=== PATIENT | female | born 1990 | race American Indian/Alaskan Native ===

== ENCOUNTER 2018-05-13 18:33 | Emergency (ER) | payer SELFPAY ==
[2018-05-13] MEDS ORDERED: NACL 0.9% 1000 ML 1,000 ML IV ONE (18:44)
[2018-05-13 19:22] LABS: Basophils # (Auto) 0.1 K/mm3 (0.0-0.1); Basophils % (Auto) 0.5 % (0.0-1.8); Eosinophils # (Auto) 0.2 K/mm3 (0.0-0.4); Eosinophils % (Auto) 1.6 % (0.0-4.3); Hemoglobin 11.2 gm/dl (10.1-14.3); Lymphocytes # (Auto) 2.8 K/mm3 (1.2-5.4); Lymphocytes % (Auto) 27.4 % (13.4-35.0); Mean Corpuscular HGB Conc 33 % (30-34); Mean Corpuscular Volume 91 fl (79-97); Monocytes # (Auto) 0.5 K/mm3 (0.0-0.8); Monocytes % (Auto) 5.3 % (0.0-7.3); Platelet Count 178 K/mm3 (140-440); Red Blood Count 3.76 M/mm3 (3.65-5.03); Red Cell Distribution Width 13.2 % (13.2-15.2)
[2018-05-13 19:36] LABS: Alanine Aminotransferase 9 units/L (7-56); Albumin 4.5 g/dL (3.9-5); BUN/Creatinine Ratio 14; Blood Urea Nitrogen 10 mg/dL (7-17); Calcium 9.3 mg/dL (8.4-10.2); Hemolysis Index 2
[2018-05-13 19:53] LABS: Bacteria,Urine 2+ /HPF (Negative); Bilirubin,Urine NEG (Negative); Blood,Urine MOD (Negative); Color,Urine Yellow (Yellow); Mucus,Urine 3+ /HPF; Urobilinogen,Urine < 2.0 mg/dL (<2.0)
[2018-05-13 20:10] LABS: HCG Qualitative,Urine Negative (Negative); WBC,Urine > 182.0 /HPF (0.0-6.0)
[2018-05-13] MEDS ORDERED: IBUPROFEN PO ONE (21:42)
--- NOTE | 2018-05-13 21:42 | Emergency Department Report ---
ED Abdominal Pain HPI - General Chief Complaint: Abdominal Pain Stated Complaint: LT SIDE/STOMACH PAIN Time Seen by Provider: 05/13/18 21:33 Source: patient Mode of arrival: Ambulatory Limitations: No Limitations - History of Present Illness Initial Comments: 27-year-old -[place] female 6 para 6 comes in for throbbing intermittent abdominal pain to the left lower quadrant. Patient reports that his radiate to the bottom of her stomach. She admits to nausea denies any vomiting diarrhea or constipation. Patient reports her last menstrual para with 04/30/2018. She denies any fever chills. MD Complaint: abdominal pain -: days(s) (1) Location: LLQ Radiation: suprapubic Severity scale (0 -10): 2 Quality: aching Consistency: intermittent Improves With: nothing Worsens With: nothing - Related Data Previous Rx's Medication Instructions Recorded Last Taken Type Ferrous Sulfate [Feosol 325 MG tab] 325 mg PO TID #90 tablet 05/08/16 Unknown Rx Ibuprofen [Motrin 800 MG tab] 800 mg PO Q8HR PRN #30 tablet 05/08/16 Unknown Rx Lidocain2.5%/Prilocai2.5% [Emla] 5 gm TP ONCE PRN #1 tube 05/08/16 Unknown Rx Ibuprofen [Motrin 600 MG tab] 600 mg PO Q8H PRN #15 tablet 05/13/18 Unknown Rx Nitrofurantoin Blanco/M-Cryst 100 mg PO Q12HR #20 capsule 05/13/18 Unknown Rx [Macrobid CAP] Allergies Allergy/AdvReac Type Severity Reaction Status Date / Time No Known Allergies Allergy Unverified 04/29/16 15:57 ED Review of Systems ROS: Stated complaint: LT SIDE/STOMACH PAIN Other details as noted in HPI Comment: All other systems reviewed and negative Gastrointestinal: abdominal pain ED Past Medical Hx - Past Medical History Previous Medical History?: No Hx Hypertension: No Hx Congestive Heart Failure: No Hx Diabetes: No Hx Deep Vein Thrombosis: No Hx Renal Disease: No Hx Sickle Cell Disease: No Hx Seizures: No Hx Asthma: No Hx COPD: No Hx HIV: No - Surgical History Past Surgical History?: No - Social History Smoking Status: Never Smoker Substance Use Type: None - Medications Home Medications: Home Medications Medication Instructions Recorded Confirmed Last Taken Type Ferrous Sulfate [Feosol 325 MG tab] 325 mg PO TID #90 tablet 05/08/16 Unknown Rx Ibuprofen [Motrin 800 MG tab] 800 mg PO Q8HR PRN #30 tablet 05/08/16 Unknown Rx Lidocain2.5%/Prilocai2.5% [Emla] 5 gm TP ONCE PRN #1 tube 05/08/16 Unknown Rx Ibuprofen [Motrin 600 MG tab] 600 mg PO Q8H PRN #15 tablet 05/13/18 Unknown Rx Nitrofurantoin Blanco/M-Cryst 100 mg PO Q12HR #20 capsule 05/13/18 Unknown Rx [Macrobid CAP] ED Physical Exam - General Limitations: No Limitations General appearance: alert, in no apparent distress - Head Head exam: Present: atraumatic, normocephalic - ENT ENT exam: Present: mucous membranes moist - Respiratory Respiratory exam: Present: normal lung sounds bilaterally. Absent: respiratory distress - Cardiovascular Cardiovascular Exam: Present: regular rate, normal rhythm. Absent: systolic m urmur, diastolic murmur, rubs, gallop - GI/Abdominal GI/Abdominal exam: Present: soft, normal bowel sounds ED Course Vital Signs 05/13/18 18:40 Temperature 98.1 F Pulse Rate 96 H Respiratory 16 Rate Blood Pressure 106/62 O2 Sat by Pulse 100 Oximetry ED Medical Decision Making - Lab Data Result diagrams: 05/13/18 18:58 05/13/18 18:58 - Radiology Data Patient's been evaluated by this provider fast track. Patient be given ibuprofen and potassium chloride by mouth 40 mEq since her p otassium level 3.3. Patient has a urinary tract infection we'll place her on Macrobid 100 mg twice a day. Discussed the patient sees increase her water intake by 3-4 L a day. And to be sure to void after intercourse. Critical care attestation.: If time is entered above; I have spent that time in minutes in the direct care of this critically ill patient, excluding procedure time. ED Disposition Clinical Impression: Hypokalemia UTI (urinary tract infection) Qualifiers: Urinary tract infection type: site unspecified Hematuria presence: without hematuria Qualified Code(s): N39.0 - Urinary tract infection, site not specified Disposition: TO HOME OR SELFCARE Is pt being admited?: No Does the pt Need Aspirin: No Condition: Stable Instructions: Abdominal Pain (ED), Hypokalemia (ED), Urinary Tract Infection in Women (ED) Additional Instructions: Please increase your potassium by eating bananas apricots orange juice. Please complete her antibiotics as prescribed pain medication as needed and increase her water intake by 3-4 L a day please follow-up with her primary care provider in the next 3-5 days for follow-up. Prescriptions: Ibuprofen [Motrin 600 MG tab] 600 mg PO Q8H PRN #15 tablet PRN Reason: Pain , Severe (7-10) Nitrofurantoin Blanco/M-Cryst [Macrobid CAP] 100 mg PO Q12HR #20 capsule Referrals: [facility] [Provider Group] - 3-5 Days
[2018-05-13] MEDS ORDERED: K-DUR PO ONE (21:43)
[2018-05-13 22:14] VITALS: BP 103/68
== END 2018-05-13 22:21 | disposition home or self-care (01) ==
LOC: ED 18:33
DX: N39.0 Urinary tract infection, site not specified (principal); E87.6 Hypokalemia
CPT/HCPCS: 36415; 80053; 81001; 81025; 85025

== ENCOUNTER 2018-08-25 17:11 | Emergency (ER) | payer OTHER ==
--- NOTE | 2018-08-25 17:19 | Emergency Department Report ---
Chief Complaint: Dental/Oral Stated Complaint: TOOTHACHE Time Seen by Provider: 08/25/18 17:18 - HPI History of Present Illness: SIMPLE DENTAL PAIN MSE COMPLETED - Exam Vital Signs: Vital Signs 08/25/18 17:16 Temperature 98.6 F Pulse Rate 96 H Respiratory 16 Rate Blood Pressure 114/71 O2 Sat by Pulse 100 Oximetry MSE screening note: Focused history and physical exam performed. Due to findings the following was ordered: ED Disposition for MSE Condition: Stable
--- NOTE | 2018-08-25 17:43 | Emergency Department Report ---
ED ENT HPI - General Chief complaint: Dental/Oral Stated complaint: TOOTHACHE Time Seen by Provider: 08/25/18 17:18 Source: patient Mode of arrival: Ambulatory Limitations: No Limitations - History of Present Illness MD complaint: tooth pain -: Gradual, week(s) - Related Data Previous Rx's Medication Instructions Recorded Last Taken Type Amoxicillin 500 mg PO BID #20 capsule 08/25/18 Unknown Rx Ibuprofen [Motrin] 800 mg PO Q8HR PRN #20 tablet 08/25/18 Unknown Rx Allergies Allergy/AdvReac Type Severity Reaction Status Date / Time No Known Allergies Allergy Verified 08/25/18 17:15 ED Dental HPI - General Chief complaint: Dental/Oral Stated complaint: TOOTHACHE Time Seen by Provider: 08/25/18 17:18 Source: patient Mode of arrival: Ambulatory Limitations: No Limitations - Related Data Previous Rx's Medication Instructions Recorded Last Taken Type Amoxicillin 500 mg PO BID #20 capsule 08/25/18 Unknown Rx Ibuprofen [Motrin] 800 mg PO Q8HR PRN #20 tablet 08/25/18 Unknown Rx Allergies Allergy/AdvReac Type Severity Reaction Status Date / Time No Known Allergies Allergy Verified 08/25/18 17:15 ED Review of Systems ROS: Stated complaint: TOOTHACHE Other details as noted in HPI Comment: All other systems reviewed and negative ED Past Medical Hx - Past Medical History Previous Medical History?: No Hx Hypertension: No Hx Congestive Heart Failure: No Hx Diabetes: No Hx Deep Vein Thrombosis: No Hx Renal Disease: No Hx Sickle Cell Disease: No Hx Seizures: No Hx Asthma: No Hx COPD: No Hx HIV: No - Surgical History Past Surgical History?: No - Family History Family history: no significant - Social History Smoking Status: Never Smoker Substance Use Type: None - Medications Home Medications: Home Medications Medication Instructions Recorded Confirmed Last Taken Type Amoxicillin 500 mg PO BID #20 capsule 08/25/18 Unknown Rx Ibuprofen [Motrin] 800 mg PO Q8HR PRN #20 tablet 08/25/18 Unknown Rx ED Physical Exam - General Limitations: No Limitations General appearance: alert, in no apparent distress - Head Head exam: Present: atraumatic, normocephalic - Eye Eye exam: Present: normal appearance, PERRL - ENT ENT exam: Present: mucous membranes moist - Expanded ENT Exam Expanded Mouth exam: Absent: drooling, trismus, muffled voice, tongue normal, tongue elevation Teeth exam: Present: dental caries 1 - Other (CARIES) - Neck Neck exam: Present: normal inspection - Cardiovascular Cardiovascular Exam: Present: regular rate - Rectal Rectal exam: Present: deferred - Back Exam Back exam: Present: normal inspection - Neurological Exam Neurological exam: Present: alert, oriented X3 - Psychiatric Psychiatric exam: Present: normal affect, normal mood - Skin Skin exam: Present: warm, dry ED Course Vital Signs 08/25/18 17:16 Temperature 98.6 F Pulse Rate 96 H Respiratory 16 Rate Blood Pressure 114/71 O2 Sat by Pulse 100 Oximetry ED Medical Decision Making - Medical Decision Making DENTAL CARIES R MOLAR NO DMD NO ABSCESS NO TRISM. TAKING PO ABC INTACT DC HOME WITH DMD FOLLOW UP Vital Signs 08/25/18 17:16 Temperature 98.6 F Pulse Rate 96 H Respiratory 16 Rate Blood Pressure 114/71 O2 Sat by Pulse 100 Oximetry Critical care attestation.: If time is entered above; I have spent that time in minutes in the direct care of this critically ill patient, excluding procedure time. ED Disposition Clinical Impression: Dental caries Disposition: DC-01 TO HOME OR SELFCARE Is pt being admited?: No Does the pt Need Aspirin: No Condition: Stable Instructions: Dental Caries (ED), Toothache (ED) Additional Instructions: SEE DENTIST SAV SEE REFERRAL BELOW [facility] IS ANOTHER PLACE WHERE THEY WILL HELP YOU WITH INSURANCE ISSUES MED ORDERED TODAY Prescriptions: Amoxicillin 500 mg PO BID #20 capsule Ibuprofen [Motrin] 800 mg PO Q8HR PRN #20 tablet PRN Reason: Pain , Severe (7-10) Referrals: [facility] [Outside] - 3-5 Days [facility] [Outside] - 3-5 Days [facility] [Outside] - 3-5 Days [facility] [Outside] - 3-5 Days Time of Disposition: 17:41
[2018-08-25 21:24] VITALS: BP 114/71
== END 2018-08-25 17:50 | disposition home or self-care (01) ==
LOC: ED 17:11
DX: K02.9 Dental caries, unspecified (principal)
CPT/HCPCS: 99281

== ENCOUNTER 2019-01-08 13:07 | Emergency (ER) | payer SELFPAY ==
--- NOTE | 2019-01-08 13:21 | Event Note ---
ED Screening Note ED Screening Note: lower abd pain concerned preg pos dysuria This initial assessment/diagnostic orders/clinical plan/treatment(s) is/are subject to change based on patients health status, clinical progression and re- assessment by fellow clinical providers in the ED. Further treatment and workup at subsequent clinical providers discretion. Patient/guardian urged not to elope from the ED as their condition may be serious if not clinically assessed and managed. Initial orders include: ua /preg
[2019-01-08] MEDS ORDERED: IBUPROFEN PO ONE (15:24)
--- NOTE | 2019-01-08 15:24 | Emergency Department Report ---
HPI - General Chief Complaint: Abdominal Pain Time Seen by Provider: 01/08/19 13:21 - HPI HPI: Room 41 The patient is a 28-year-old female presenting with a chief complaint abdominal pain. Patient states the past 3 days she's had intermittent dull pressure pain in her left flank. Patient also admits to dysuria. Patient denies hematuria or fever. She says she's had cloudy white vaginal discharge since yesterday. Patient currently notes her pain score of 6/10 Location: [See above] Duration: [See above] Quality: [See above] Severity: [See above] Timing: [See above] Context: [See above] Modifying factors: [See above] Associated signs and symptoms: [see above] ED Past Medical Hx - Surgical History Past Surgical History?: No - Family History Family history: no significant - Social History Smoking Status: Never Smoker Substance Use Type: None (denies illicit drug use) - Medications Home Medications: Home Medications Medication Instructions Recorded Confirmed Last Taken Type Amoxicillin 500 mg PO BID #20 capsule 08/25/18 Unknown Rx Ibuprofen [Motrin] 800 mg PO Q8HR PRN #20 tablet 08/25/18 Unknown Rx Nitrofurantoin [place]/M-Cryst 100 mg PO Q12HR #14 capsule 01/08/19 Unknown Rx [Macrobid CAP] ED Review of Systems ROS: Stated complaint: SIDE PAIN/POSS Other details as noted in HPI Constitutional: denies: fever Eyes: denies: eye pain ENT: denies: throat pain Respiratory: no symptoms reported Cardiovascular: denies: chest pain Endocrine: no symptoms reported Gastrointestinal: abdominal pain, nausea. denies: vomiting Genitourinary: dysuria, discharge. denies: hematuria, abnormal menses Musculoskeletal: denies: back pain Neurological: denies: headache Physical Exam - Physical Exam Vital Signs: Vital Signs 01/08/19 13:15 Temperature 98.1 F Pulse Rate 80 Respiratory 16 Rate Blood Pressure 121/62 O2 Sat by Pulse 98 Oximetry Physical Exam: GENERAL: The patient is well-developed well-nourished female lying on stretcher not appearing to be in acute distress. [] HEENT: Normocephalic. Atraumatic. Extraocular motions are intact. Patient has moist mucous membranes. NECK: Supple. Trachea midline CHEST/LUNGS: Clear to auscultation. There is no respiratory distress noted. HEART/CARDIOVASCULAR: Regular. There is no tachycardia. There is no gallop rub or murmur. ABDOMEN: Abdomen is soft, nontender. Patient has normal bowel sounds. There is no abdominal distention. SKIN: There is no rash. There is no edema. There is no diaphoresis. NEURO: The patient is awake, alert, and oriented. The patient is cooperative. The patient has normal speech MUSCULOSKELETAL: There is no CVA tenderness. There is no evidence of acute injury. ED Course Vital Signs 01/08/19 13:15 Temperature 98.1 F Pulse Rate 80 Respiratory 16 Rate Blood Pressure 121/62 O2 Sat by Pulse 98 Oximetry ED Medical Decision Making - Lab Data Laboratory Tests 01/08/19 01/08/19 15:47 16:59 HCG, Quant 7379 H Urine Color Yellow Urine Turbidity Slightly-cloudy Urine pH 6.0 Ur Specific [place] 1.019 Urine Protein <15 mg/dl Urine Glucose (UA) Neg Urine Ketones Neg Urine Blood Neg Urine Nitrite Pos Ur Reducing Substances Not Reportable Urine Bilirubin Neg Urine Ictotest Not Reportable Urine Urobilinogen < 2.0 Ur Leukocyte Esterase Sm Urine WBC (Auto) 11.0 H Urine RBC (Auto) 3.0 U Epithel Cells (Auto) 5.0 Urine Bacteria (Auto) 1+ Urine Mucus 3+ Urine HCG, Qual Positive A - Radiology Data Radiology results: report reviewed (pelvic ultrasound), image reviewed (pelvic ultrasound) [facility] [address] [place] [address] Ultrasound Report Signed Patient: VIMAL TRAMMELL MR# : [id number] : 1990 Acct:[id number] Age/Sex: 28 / F ADM Date: 01/08/19 Loc: ED Attending Dr: Ordering Physician: ALENA VENEGAS MD Date of Service: 01/08/19 Procedure(s): US OB <= 14 weeks fetus Accession Number(s): [id number] cc: ALENA VENEGAS MD ULTRASOUND OBSTETRIC Indication: left pelvic pain, Findings: There is a single, living intrauterine . Was a gestational sac that measures about 5 weeks and 5 days. A yolk sac was visualized. No free pelvic f luid. No subchorionic hemorrhage appreciated. Both ovaries are unremarkable. No significant free pelvic fluid. IMPRESSION: Single living intrauterine , early with single yolk sac visualization. Abdomen short-term follow-up. Signer Name: George [place] MD Signed: 01/08/2019 7:47 PM Workstation Name: [id number] Transcribed By: Dictated By: George [place] MD Electronically Authenticated By: George [place] MD Signed Date/Time: 01/08/191946 DD/ 45 TD/TT: - Differential Diagnosis UTI, pyelonephritis, bacterial vaginosis, vaginitis Critical care attestation.: If time is entered above; I have spent that time in minutes in the direct care of this critically ill patient, excluding procedure time. ED Disposition Clinical Impression: Trichomoniasis, , UTI (urinary tract infection) Disposition: - TO HOME OR SELFCARE Is pt being admited?: No Does the pt Need Aspirin: No Condition: Stable Instructions: Abdominal Pain (ED) Additional Instructions: Return to the emergency department should you develop worsening symptoms, inability to tolerate food or liquids, high fever or any other concerns Prescriptions: Nitrofurantoin [place]/M-Cryst [Macrobid CAP] 100 mg PO Q12HR #14 capsule Referrals: LAUREN NEWTON MD [Staff Physician] - 3-5 Days (Dr. Newton is an [employer]. Please follow up with her for further evaluation)
[2019-01-08 16:36] LABS: HCG Qualitative,Urine Positive (Negative)
[2019-01-08 16:38] LABS: Bacteria,Urine 1+ /HPF (Negative); Bilirubin,Urine NEG (Negative); Blood,Urine NEG (Negative); Color,Urine Yellow (Yellow); Mucus,Urine 3+ /HPF; Protein,Urine <15 mg/dL mg/dL (Negative); Urobilinogen,Urine < 2.0 mg/dL (<2.0)
[2019-01-08] MEDS ORDERED: FLAGYL PO ONE (16:42)
--- NOTE | 2019-01-08 19:51 | Ultrasound Report ---
ULTRASOUND OBSTETRIC Indication: left pelvic pain, Findings: There is a single, living intrauterine . Was a gestational sac that measures about 5 weeks and 5 days. A yolk sac was visualized. No free pelv ic fluid. No subchorionic hemorrhage appreciated. Both ovaries are unremarkable. No significant free pelvic fluid. IMPRESSION: Single living intrauterine , early with single yolk sac visualization. Abdomen s hort-term follow-up. Signer Name: George [place] MD Signed: 01/08/2019 7:47 PM Workstation Name: [id number]
[2019-01-08 20:46] VITALS: BP 116/78
== END 2019-01-08 20:53 | disposition home or self-care (01) ==
LOC: ED 13:07
DX: O23.41 Unspecified infection of urinary tract in pregnancy, first trimester (principal); Z3A.01 Less than 8 weeks gestation of pregnancy
CPT/HCPCS: 36415; 76801; 76817; 81001; 81025; 84702; 87076; 87086; 87186; 87210; 87591